=== PATIENT | female | born 1995 | race Caucasian/White ===

== ENCOUNTER 2016-04-04 01:47 | Emergency (ER) | payer BC, MEDICAID ==
[~2016-04-04] VITALS: Ht 170.2 cm; Wt 72.6 kg
[2016-04-04 04:00] LABS: Urine RBC None Seen /hpf (0 - 4)
[2016-04-04 04:21] LABS: Urine Bilirubin Negative (Negative); Urine Blood Negative /uL (Negative); Urine Color Yellow (Yellow); Urine Glucose Normal (Normal); Urine Ketone 1+ (Negative); Urine Nitrite Negative (Negative); Urine Urobilinogen Normal (Negative); Urine pH 6.5 (5.0-8.0)
[2016-04-04] MEDS ORDERED: SODIUM CHLORIDE 0.9% 1,000 ML IV ONE (10:58)
[2016-04-04] MEDS ORDERED: LORazepam 2MG/ML-1ML VIAL IV ONE (11:00)
[2016-04-04 11:29] LABS: Basophils # (auto) 0 uL; Basophils % (auto) 0.3 % (0.0-2.0); Eosinophils # (auto) 0 uL; Eosinophils % (auto) 0.4 % (0.0-7.0); Hematocrit 42.2 % (36.0-46.0); Hemoglobin 14.2 g/dL (12.2-16.2); Lymphocytes # (auto) 2.2 uL; Lymphocytes % (auto) 25.8 % (10.0-50.0); Mean Corpuscular Hgb Conc. 33.7 g/dL (32.0-36.0); Mean Corpuscular Volume 86.1 fL (80.0-100.0); Mean Platelet Volume 7.9 fL (7.4-10.4); Monocytes # (auto) 0.3 uL; Neutrophils # (auto) 5.9 uL; Neutrophils % (auto) 69.5 % (37.0-80.0); Platelet Count (auto) 424 10^3/uL (140-450); Red Cell Distribution Width 13.3 % (11.6-16.0); White Blood Cell 8.4 10^3/uL (4.4-10.8)
[2016-04-04 11:42] LABS: INR 1.11 (0.9-1.15); Partial Thromboplastin Time 27.3 sec (22.64-33.71); Prothrombin Time 11.4 sec (9.37-12.3)
[2016-04-04 12:11] LABS: Albumin 4.3 g/dL (3.4-5.0); BUN/Creatinine Ratio 13.6; Bilirubin, Total 1.1 mg/dL (0.2-1.0); Calcium 9.6 mg/dL (8.5-10.1); Potassium 3.8 mmol/L (3.5-5.1)
[2016-04-04 17:40] VITALS: BP 115/66
== END 2016-04-04 18:08 | disposition short-term general hospital (02) ==
LOC: ER 01:47
DX: F41.9 Anxiety disorder, unspecified (principal); R53.1 Weakness
CPT/HCPCS: 36415; 70450; 80053; 81001; 81025; 85025; 85610; 85730; 96361; 96374; 99285; G0434; J2060; J7030